=== PATIENT | female | born 1975 | race Hispanic/Latino ===

== ENCOUNTER 2019-04-17 07:54 | Inpatient (IN) | payer OTHER ==
[~2019-04-17] VITALS: Ht 165.1 cm; Wt 79.4 kg
[2019-04-17] VITALS (10 sets, daily range): BP systolic 116–137; BP diastolic 69–82
[2019-04-17] MEDS ORDERED: MORPHINE SULFATE 4 MG/1ML SYG ONE ×2 (08:32→12:14)
[2019-04-17] MEDS ORDERED: FAMOTIDINE/PF 20 MG/2 ML VIAL IV ONE (08:33)
[2019-04-17 08:50] LABS: BASOPHILS % (AUTO) 3.9 % (0.0-5.0); EOSINOPHILS % (AUTO) 0.7 % (0.0-8.0); HEMATOCRIT 38.6 % (36-48); LYMPHOCYTES % (AUTO) 12.4 % (21.0-51.0); MEAN CORPUSCULAR HEMOGLOBIN 35.7 pg (27.0-33.0); MEAN CORPUSCULAR HGB CONC 40.7 g/dL (32.0-36.0); MEAN CORPUSCULAR VOLUME 87.7 fL (79-99); MONOCYTES % (AUTO) 3.1 % (3.0-13.0); NEUTROPHILS % (AUTO) 79.9 % (40.0-77.0); NUCLEATED RED BLOOD CELLS 0.1 % (0.0-0.19); PLATELET COUNT (AUTO) 329 K/uL (130-400); RED CELL DISTRIBUTION WIDTH 13.6 % (11.0-15.5); WHITE BLOOD COUNT (AUTO) 16.2 K/uL (4.8-10.8)
[2019-04-17 08:52] LABS: APPEARANCE,URINE Clear (CLEAR); BILIRUBIN,URINE Negative (NEGATIVE); COLOR,URINE Yellow (YELLOW); GLUCOSE, URINE (UA) Negative (NEGATIVE); KETONES,URINE Negative (NEGATIVE); LEUKOCYTE ESTERASE ,URINE Trace (NEGATIVE); NITRATE,URINE Negative (NEGATIVE); OCCULT BLOOD,URINE Trace (NEGATIVE); PH,URINE 6.5 (5.0-8.0); PROTEIN,URINE Trace mg/dL (NEGATIVE); UROBILINOGEN,URINE 0.2 mg/dL (0.2-1.0)
[2019-04-17 08:53] LABS: HCG,QUAL RESULT NEGATIVE (NEGATIVE)
[2019-04-17 09:29] LABS: BACTERIA,URINE Few /HPF (None Seen); RBC,URINE 0-1 /HPF (0-1); WBC,URINE 0-1 /HPF (0-1)
[2019-04-17 09:35] LABS: POTASSIUM 3.5 mmol/L (3.5-5.1)
[2019-04-17 09:36] LABS: ALBUMIN 3.8 g/dL (3.5-5.0); BILIRUBIN,TOTAL 0.2 mg/dL (0.2-1.0); CREATININE 0.7 mg/dL (0.5-1.5); TOTAL PROTEIN, SERUM 6.6 g/dL (6.0-8.3)
[2019-04-17] MEDS ORDERED: IOHEXOL-350 75 ML VIAL IV ONE (09:36)
[2019-04-17] MEDS ORDERED: SODIUM CHLORIDE 0.9% 1000ML 1,000 ML IV SCH ×5 (11:50→20:15)
[2019-04-17] MEDS ORDERED: ONDANSETRON HCL 4 MG/2 ML VIAL IV PRN (12:00)
[2019-04-17] MEDS ORDERED: HYDRALAZINE HCL 20 MG/ML VIAL IV PRN (12:00)
[2019-04-17] MEDS ORDERED: ACETAMINOPHEN 325 MG TAB PO PRN (12:00)
[2019-04-17] MEDS ORDERED: KETOROLAC TROMETHAMINE 15MG/ML IV PRN (12:15)
[2019-04-17 12:30] LABS: AMPHET/METH SCREEN,URINE NEGATIVE (NEGATIVE); BARBITURATE SCREEN, URINE NEGATIVE (NEGATIVE); BENZODIAZEPINES SCREEN,URINE NEGATIVE (NEGATIVE); CANNABINOID SCREEN,URINE NEGATIVE (NEGATIVE); COCAINE SCREEN,URINE POSITIVE (NEGATIVE); OPIATE SCREEN,URINE NEGATIVE (NEGATIVE); PHENCYCLIDINE SCREEN,URINE NEGATIVE (NEGATIVE)
[2019-04-17] MEDS: ZOSYN 3.375GM+NS 50ML 50 ML IV SCH ×2 (13:00→20:56)
[2019-04-17 13:01] LABS: THYROID STIMULATING HORMONE 3.26 uIU/mL (0.36-3.74)
[2019-04-17 14:11] LABS: POTASSIUM 3.4 mmol/L (3.5-5.1)
[2019-04-17 14:13] LABS: BILIRUBIN,TOTAL 1.1 mg/dL (0.2-1.0); CREATININE 0.7 mg/dL (0.5-1.5)
[2019-04-17 14:14] LABS: ALBUMIN 3.6 g/dL (3.5-5.0); TOTAL PROTEIN, SERUM 6.5 g/dL (6.0-8.3)
[2019-04-17] MEDS ORDERED: ZOSYN 3.375GM+NS 50ML 50 ML IV ONE (14:53)
[2019-04-17] MEDS ORDERED: SODIUM CHLORIDE 0.9% 1000ML 1,000 ML IV ONE (14:56)
[2019-04-17] MEDS ORDERED: LIDOCAINE HCL-MPF 1% 2ML VIAL IJ PRN (16:15)
[2019-04-17 16:22] LABS: LDL DIRECT 60 mg/dL (0-99)
--- NOTE | 2019-04-17 16:25 | NUR ---
ER ADMIT PATIENT RECEIVED FROM ER VIA STRETCHER ACCOMPANIED BY FAMILY. EVERYONE WAS ORIENTED TO ROOM AND USE OF CALL LIGHT. BED IS IN LOWEST POSITION AND LOCKED. NO DISTRESS NOTED. IV PATENT WITH NO REDNESS OR SWELLING NOTED TO SITE. WILL CONTINUE TO MONITOR.
[2019-04-17] MEDS ORDERED: INSULIN HUMULIN R 100 UNIT/ML 3ML SQ SCH (16:30)
[2019-04-17 16:37] LABS: CHOLESTEROL 563 mg/dL (<200); HDL CHOLESTEROL 829 mg/dL (35-85); TRIGLYCERIDES 6966 mg/dL (30-200)
[2019-04-17] MEDS ORDERED: DEXTROSE 5 %-0.45 % NACL 1,000 ML IV PRN (17:29)
[2019-04-17] MEDS ORDERED: POTASSIUM CHLORIDE 10MEQ/100ML 100 ML IV PRN (17:30)
[2019-04-17] MEDS: MORPHINE SULFATE 4 MG/1ML SYG IV PRN (17:42)
--- NOTE | 2019-04-17 18:15 | NUR ---
REPORT REPORT CALLED TO ZAKIA MOHR. PATIENT WILL BE TRANSFERRED ONCE ROOM AND NURSE ARE READY.
[2019-04-17] MEDS ORDERED: PHARMACY COMMUNICATION MISC SCH (20:30)
[2019-04-17] MEDS: FAMOTIDINE/PF 20 MG/2 ML VIAL IV SCH (20:56)
[2019-04-17] MEDS ORDERED: FENOFIBRATE NANOCRYSTALLIZED 48 MG TAB PO SCH (21:00)
[2019-04-17] MEDS ORDERED: SIMVASTATIN 10 MG TABLET PO SCH (22:15)
[2019-04-17] MEDS ORDERED: DEXTROSE 5 % AND 0.9 % NACL 1,000 ML IV ONE (22:47)
[2019-04-17] MEDS: DEXTROSE 5 % AND 0.9 % NACL 1,000 ML IV SCH (23:00)
[2019-04-17] MEDS: INSULIN REGULAR, HUMAN 3ML 100 UNIT in SODIUM CHLORIDE 0.9% 99 ML IV PRN ×2 (23:28)
[2019-04-18] VITALS (23 sets, daily range): BP systolic 112–160; BP diastolic 64–89
[2019-04-18] MEDS ORDERED: INSULIN HUMULIN R 100 UNIT/ML 3ML SQ SCH
[2019-04-18 04:07] LABS: BASOPHILS % (AUTO) 1.5 % (0.0-5.0); EOSINOPHILS % (AUTO) 0.8 % (0.0-8.0); HEMATOCRIT 34.2 % (36-48); LYMPHOCYTES % (AUTO) 11.7 % (21.0-51.0); MEAN CORPUSCULAR HEMOGLOBIN 31.7 pg (27.0-33.0); MEAN CORPUSCULAR HGB CONC 35.9 g/dL (32.0-36.0); MEAN CORPUSCULAR VOLUME 88.2 fL (79-99); PLATELET COUNT (AUTO) 290 K/uL (130-400); RED BLOOD CELL COUNT(AUTO) 3.88 MIL/uL (4.00-5.50); WHITE BLOOD COUNT (AUTO) 14.1 K/uL (4.8-10.8)
[2019-04-18 04:50] LABS: ALBUMIN 2.7 g/dL (3.5-5.0); BILIRUBIN,TOTAL 0.8 mg/dL (0.2-1.0); POTASSIUM 3.4 mmol/L (3.5-5.1)
[2019-04-18] MEDS: MORPHINE SULFATE 4 MG/1ML SYG IV PRN ×2 (05:34→10:18)
[2019-04-18] MEDS: DEXTROSE 5 % AND 0.9 % NACL 1,000 ML IV SCH (05:35)
[2019-04-18] MEDS: ZOSYN 3.375GM+NS 50ML 50 ML IV SCH ×3 (05:35→20:40)
[2019-04-18 05:42] LABS: CREATININE 0.9 mg/dL (0.5-1.5); TOTAL PROTEIN, SERUM 6.6 g/dL (6.0-8.3)
--- NOTE | 2019-04-18 06:00 | NUR ---
CERTIFIED PERSONAL TRAINER CALL PLACED TO CERTIFIED PERSONAL TRAINER RE:LAB RESULTS. RETURN CALL PENDING
[2019-04-18] MEDS ORDERED: ENOXAPARIN SODIUM 30 MG/0.3 ML SQ SCH (09:00)
[2019-04-18] MEDS: FAMOTIDINE/PF 20 MG/2 ML VIAL IV SCH ×2 (10:17→20:39)
[2019-04-18] MEDS: D5 NS WITH 20 mEq KCl 1000ML 1,000 ML IV SCH ×2 (12:44→19:51)
[2019-04-18] MEDS ORDERED: POTASSIUM CHLORIDE 20MEQ/100ML 100 ML IV PRN (12:45)
[2019-04-18] MEDS ORDERED: MAGNESIUM 2GM PREMIX 50ML 50 ML IV PRN (12:45)
[2019-04-18] MEDS ORDERED: LIDOCAINE HCL-MPF 1% 2ML VIAL IV PRN (12:45)
[2019-04-18] MEDS ORDERED: FENOFIBRATE NANOCRYSTALLIZED 145 MG TAB PO SCH (12:45)
[2019-04-18] MEDS: DEXTROSE 10%-WATER 1,000 ML IV SCH (14:10)
--- NOTE | 2019-04-18 14:20 | NUR ---
DC PLAN PER PATIENT, IS INDEPENDENT, LIVES WITH FRIEND, YAMILET, NO DME, NO PROVIDER OR COMMUNITY SERVICES USED, AND FEELS SAFE TO RETURN HOME ONCE DISCHARGED. Addendum: 04/18/19 at 1423 by BRIGITTE NAIDU RN CM Amended: Links added.
--- NOTE | 2019-04-18 14:22 | NUR ---
CM NOTE SELF PAY PACKET GIVEN TO PATIENT, VERBALIZED UNDERSTANDING OF INFORMATION. Addendum: 04/18/19 at 1423 by BRIGITTE NAIDU RN CM Amended: Links added.
[2019-04-18 15:00] LABS: AMPHET/METH SCREEN,URINE NEGATIVE (NEGATIVE); BARBITURATE SCREEN, URINE NEGATIVE (NEGATIVE); BENZODIAZEPINES SCREEN,URINE NEGATIVE (NEGATIVE); CANNABINOID SCREEN,URINE NEGATIVE (NEGATIVE); COCAINE SCREEN,URINE POSITIVE (NEGATIVE); OPIATE SCREEN,URINE POSITIVE (NEGATIVE); PHENCYCLIDINE SCREEN,URINE NEGATIVE (NEGATIVE)
[2019-04-18] MEDS: MORPHINE SULFATE 2 MG/ML 1ML SYG IV PRN ×2 (15:41→20:42)
[2019-04-18] MEDS: ACETAMINOPHEN 325 MG TAB PO PRN (15:57)
[2019-04-18] MEDS: GEMFIBROZIL 600 MG TABLET PO SCH (15:57)
[2019-04-18 16:13] LABS: CREATININE 0.9 mg/dL (0.5-1.5); POTASSIUM 3.3 mmol/L (3.5-5.1)
[2019-04-18] MEDS: POTASSIUM CHLORIDE 20MEQ/100ML 100 ML IV PRN (17:30)
[2019-04-18] MEDS ORDERED: SODIUM CHLORIDE 3% FOR INHALATION 4 ML/AMP VIAL.NEB IH ONE (19:57)
[2019-04-18] MEDS: FISH OIL 1000 MG/CAP PO SCH (20:40)
[2019-04-18] MEDS: NIACIN 500 MG SRTAB PO SCH (20:40)
[2019-04-18] MEDS: ATORVASTATIN CALCIUM 20 MG TABLET PO SCH (20:41)
[2019-04-18 22:17] LABS: CREATININE 0.8 mg/dL (0.5-1.5); POTASSIUM 3.9 mmol/L (3.5-5.1)
[2019-04-18] MEDS ORDERED: DEXTROSE IV SCH (23:00)
[2019-04-18] MEDS ORDERED: NACL IV SCH (23:00)
[2019-04-18] MEDS ORDERED: POTASSIUM CHLORIDE IV SCH (23:00)
[2019-04-19] VITALS (22 sets, daily range): BP systolic 99–144; BP diastolic 45–99
[2019-04-19] MEDS: D5 NS WITH 20 mEq KCl 1000ML 1,000 ML IV SCH ×4 (02:31→20:34)
[2019-04-19 04:08] LABS: CREATININE 0.8 mg/dL (0.5-1.5); MAGNESIUM 1.7 mg/dL (1.80-2.40); POTASSIUM 3.6 mmol/L (3.5-5.1)
[2019-04-19] MEDS: ZOSYN 3.375GM+NS 50ML 50 ML IV SCH ×3 (04:33→20:34)
[2019-04-19] MEDS: GEMFIBROZIL 600 MG TABLET PO SCH ×2 (06:37→15:51)
[2019-04-19] MEDS: FAMOTIDINE/PF 20 MG/2 ML VIAL IV SCH ×2 (08:58→20:33)
[2019-04-19] MEDS: POTASSIUM CHLORIDE 20MEQ/100ML 100 ML IV PRN (08:58)
[2019-04-19] MEDS: FISH OIL 1000 MG/CAP PO SCH ×2 (08:58→20:34)
[2019-04-19] MEDS: ENOXAPARIN SODIUM 40 MG/0.4 ML SYRINGE SQ SCH (09:14)
[2019-04-19 10:49] LABS: CREATININE 0.8 mg/dL (0.5-1.5); POTASSIUM 3.5 mmol/L (3.5-5.1)
[2019-04-19] MEDS ORDERED: POTASSIUM CHLORIDE 10% ELIXIR 20 MEQ/15 ML UDCUP PO PRN (13:15)
[2019-04-19] MEDS ORDERED: POTASSIUM CHLORIDE 20 MEQ ERTAB PO PRN (13:15)
[2019-04-19] MEDS: DEXTROSE 10%-WATER 1,000 ML IV SCH (13:58)
--- NOTE | 2019-04-19 15:41 | NUR ---
NUTRITION EDUCATION ARELIS provided Pancreatitis, Pre-Diabetes diet education via Italian translation. RD reviewed reference materials with Pt. Pt with multiple questions. RD answered all questions via Italian translation. Pt with difficulty reading but Pt states daughter will help. ARELIS reviewed reference materials thoroughly with Pt via Italian translation. Pt verbalized understanding. Pt also with family history of Pancreatitis. ARELIS encouraged Pt to notify as nutrition concerns arise. Addendum: 04/19/19 at [address] RD Amended: Links added.
--- NOTE | 2019-04-19 15:48 | NUR ---
RD NOTIFICATION Pt admitted for acute pancreatitis, Hyponatremia, hyperglycemia. RD provided nutrition education for Pancreatitis, Prediabetes via Swazi translation. Pt verbalized understanding. RD recommend to advance diet, when medically feasible, to GI Soft/[place], Low Fat Diet order. Pt LBM 04/16/19. Pt monitored labs: BUN 2, BG 147, Ca 8.3, Mg 1.70, TG 998, Cl 30, HDL 484, Alb 2.7. RD to continue to monitor. Please notify RD as additional nutrition concerns arise. Thank you. Addendum: 04/19/19 at [address] RD Amended: Links added.
[2019-04-19 16:10] LABS: CREATININE 0.8 mg/dL (0.5-1.5); POTASSIUM 3.8 mmol/L (3.5-5.1)
[2019-04-19] MEDS: ACETAMINOPHEN 325 MG TAB PO PRN (18:44)
[2019-04-19] MEDS: ATORVASTATIN CALCIUM 20 MG TABLET PO SCH (20:34)
[2019-04-19] MEDS: NIACIN 500 MG SRTAB PO SCH (20:34)
[2019-04-19] MEDS: INSULIN REGULAR, HUMAN 3ML 100 UNIT in SODIUM CHLORIDE 0.9% 99 ML IV PRN ×2 (20:35)
[2019-04-19 22:44] LABS: CREATININE 0.7 mg/dL (0.5-1.5); POTASSIUM 3.8 mmol/L (3.5-5.1)
[2019-04-20] VITALS (15 sets, daily range): BP systolic 99–137; BP diastolic 54–92
[2019-04-20 03:52] LABS: BASOPHILS % (AUTO) 0.5 % (0.0-5.0); EOSINOPHILS % (AUTO) 2.5 % (0.0-8.0); HEMATOCRIT 32.9 % (36-48); LYMPHOCYTES % (AUTO) 18.5 % (21.0-51.0); MEAN CORPUSCULAR HEMOGLOBIN 29.1 pg (27.0-33.0); MEAN CORPUSCULAR HGB CONC 32.7 g/dL (32.0-36.0); MEAN CORPUSCULAR VOLUME 89.1 fL (79-99); MONOCYTES % (AUTO) 7.7 % (3.0-13.0); NEUTROPHILS % (AUTO) 70.8 % (40.0-77.0); PLATELET COUNT (AUTO) 279 K/uL (130-400); RED BLOOD CELL COUNT(AUTO) 3.69 MIL/uL (4.00-5.50); RED CELL DISTRIBUTION WIDTH 14.7 % (11.0-15.5); WHITE BLOOD COUNT (AUTO) 9.6 K/uL (4.8-10.8)
[2019-04-20 04:15] LABS: ALBUMIN 2.7 g/dL (3.5-5.0); BILIRUBIN,TOTAL 1.1 mg/dL (0.2-1.0); CREATININE 0.8 mg/dL (0.5-1.5); MAGNESIUM 1.9 mg/dL (1.80-2.40); POTASSIUM 3.8 mmol/L (3.5-5.1); TOTAL PROTEIN, SERUM 6.5 g/dL (6.0-8.3)
[2019-04-20] MEDS: D5 NS WITH 20 mEq KCl 1000ML 1,000 ML IV SCH ×2 (04:30→07:02)
[2019-04-20] MEDS: GEMFIBROZIL 600 MG TABLET PO SCH ×2 (05:47→16:22)
[2019-04-20] MEDS: ZOSYN 3.375GM+NS 50ML 50 ML IV SCH (05:47)
[2019-04-20] MEDS: FISH OIL 1000 MG/CAP PO SCH ×2 (08:34→20:47)
[2019-04-20] MEDS: FAMOTIDINE/PF 20 MG/2 ML VIAL IV SCH ×2 (08:34→20:48)
[2019-04-20] MEDS: ENOXAPARIN SODIUM 40 MG/0.4 ML SYRINGE SQ SCH (08:36)
[2019-04-20 10:11] LABS: CREATININE 0.7 mg/dL (0.5-1.5); POTASSIUM 3.9 mmol/L (3.5-5.1)
--- NOTE | 2019-04-20 17:05 | NUR ---
TRANSFER PATIENT RECEIVED FROM ROOM 217 IN STABLE CONDITION. SHE IS AWAKE AND ALERT WITH NO SIGNS OF OBVIOUS DISTRESS. SHE HAS BEEN REORIENTED TO ROOM AND USE OF CALL LIGHT. WILL CONTINUE TO MONITOR.
--- NOTE | 2019-04-20 17:14 | NUR ---
TRANSFERRED TO MEDICAL FLOOR SBAR REPORT TO TREVOR BLACKWOOD RN
[2019-04-20] MEDS ORDERED: COMPOUND PO MISCELLANEOUS 1 EACH MISC MISC PRN (20:15)
[2019-04-20] MEDS: ATORVASTATIN CALCIUM 20 MG TABLET PO SCH (20:47)
[2019-04-20] MEDS ORDERED: NIACIN 500 MG SRTAB PO SCH (21:00)
[2019-04-20 22:40] LABS: CREATININE 0.8 mg/dL (0.5-1.5); POTASSIUM 3.9 mmol/L (3.5-5.1)
[2019-04-21 03:58] VITALS: BP 122/74
[2019-04-21 05:08] LABS: BASOPHILS % (AUTO) 0.4 % (0.0-5.0); EOSINOPHILS % (AUTO) 2.7 % (0.0-8.0); MEAN CORPUSCULAR HEMOGLOBIN 28.1 pg (27.0-33.0); MEAN CORPUSCULAR HGB CONC 31.8 g/dL (32.0-36.0); MEAN CORPUSCULAR VOLUME 88.3 fL (79-99); MONOCYTES % (AUTO) 8.8 % (3.0-13.0); NEUTROPHILS % (AUTO) 69.6 % (40.0-77.0); PLATELET COUNT (AUTO) 323 K/uL (130-400); RED BLOOD CELL COUNT(AUTO) 3.85 MIL/uL (4.00-5.50); RED CELL DISTRIBUTION WIDTH 14.1 % (11.0-15.5); WHITE BLOOD COUNT (AUTO) 7.8 K/uL (4.8-10.8)
[2019-04-21 05:49] LABS: CREATININE 0.9 mg/dL (0.5-1.5); POTASSIUM 3.7 mmol/L (3.5-5.1)
[2019-04-21 08:00] VITALS: BP 114/74
[2019-04-21] MEDS: GEMFIBROZIL 600 MG TABLET PO SCH (09:19)
[2019-04-21] MEDS: FISH OIL 1000 MG/CAP PO SCH (09:20)
[2019-04-21] MEDS: FAMOTIDINE/PF 20 MG/2 ML VIAL IV SCH (09:20)
[2019-04-21] MEDS: ENOXAPARIN SODIUM 40 MG/0.4 ML SYRINGE SQ SCH (09:21)
[2019-04-21] MEDS ORDERED: FISH1CAP20 PO (11:30)
[2019-04-21] MEDS ORDERED: ATOR20TA65 PO (11:30)
[2019-04-21] MEDS ORDERED: GEMF600T5 PO (11:30)
[2019-04-21] MEDS ORDERED: NIAC500SR PO (11:30)
[2019-04-21 11:32] VITALS: BP 116/74
--- NOTE | 2019-04-21 14:50 | NUR ---
DISCHARGE Patient tolerated lunch well. No nausea, no emesis. No discomfort. Passing gas. Denies any problems. Prescriptions transmitted to [facility].
== END 2019-04-21 15:05 | disposition home or self-care (01) | DRG 439 ==
LOC: EDH 07:54 → EDHIP 07:55 → 3AH 16:47 → 2CH 19:26 → 3AH 04-20 17:26
PROVIDERS: ADMIT Internal Medicine; ATTEND Internal Medicine
DX: K85.80 Other acute pancreatitis without necrosis or infection (principal); E87.1 Hypo-osmolality and hyponatremia; E87.2 Acidosis; E78.00 Pure hypercholesterolemia, unspecified; F14.10 Cocaine abuse, uncomplicated; E86.1 Hypovolemia; E11.65 Type 2 diabetes mellitus with hyperglycemia; E66.01 Morbid (severe) obesity due to excess calories; Z68.29 Body mass index [BMI] 29.0-29.9, adult; E87.6 Hypokalemia; Z79.899 Other long term (current) drug therapy; Z82.49 Family history of ischemic heart disease and other diseases of the circulatory system; Z82.3 Family history of stroke
CPT/HCPCS: 36415; 74177; 76705; 80048; 80053; 80061; 80305; 81001; 81025; 82948; 83036; 83605; 83690; 83735; 84145; 84443; 84484; 85025; 87040; 87071; 87088; 87205; 87493; 93005; 94640; G0378; J1650; J1815; J1885; J2270; J2543; J3475; J3480; J3490; J7030; J7042; Q9967